=== PATIENT | male | born 1955 | race African-American/Black ===

== ENCOUNTER 2017-06-15 11:55 | Inpatient (IN) ==
[2017-06-15] MEDS ORDERED: SODIUM CHLORIDE 0.9% 2,900 ML IV STA (12:30)
[2017-06-15] MEDS ORDERED: LEVOFLOXACIN INJ 750 MG in PREMIX 1 EACH IV STA (12:39)
[2017-06-15] MEDS ORDERED: LEVOFLOXACIN INJ 150 ML IV ONE (12:56)
[2017-06-15] MEDS ORDERED: ONDANSETRON 4 MG/2 ML VIAL IV PRN (13:08)
[2017-06-15] MEDS ORDERED: THIAMINE 200 MG/2 ML VIAL IV STA (13:19)
[2017-06-15] MEDS ORDERED: GLUCAGON 1 MG VIAL IM PRN (13:19)
[2017-06-15 13:20] LABS: Basophils % 0.3 % (0.0-0.8); Hematocrit 31.1 VOL% (42.0-52.0); Hemoglobin 11.2 GM/DL (14.0-18.0); Immature Granulocytes % 0.3 %; Immature Granulocytes Absolute 0.01 #; Lymphocytes # 0.6 10*3/uL (1.4-4.0); Lymphocytes % 16.1 % (21.2-54.2); Mean Corpuscular Hemoglobin 33 PG (27-34); Mean Corpuscular Volume 92.3 FL (87-102); Monocytes # 0.3 10*3/uL (0.11-0.8); Monocytes % 7.7 % (1.7-12.7); NRBC # 0.23 10*3/uL; Neutrophils % 75.6 % (38.7-73.9); Red Blood Count 3.37 MC/CUMM (3.8-5.5); Red Cell Distribution Width 16.5 % (9.3-17.3); White Blood Count 3.9 T/CUMM (4-12)
[2017-06-15 13:22] LABS: Platelet Count 108 T/CUMM (130-400)
[2017-06-15] MEDS ORDERED: SODIUM CHLORIDE 0.9% 3,900 ML IV ONE (13:22)
[2017-06-15] MEDS ORDERED: THIAMINE 200 MG/2 ML VIAL ONE (13:24)
[2017-06-15 13:28] LABS: INR 1.2; PT Patient Result 12.5 SECS; Partial Thromboplastin Time 33.2 SECS (0-40)
[2017-06-15] MEDS ORDERED: SODIUM CHLORIDE 0.9% 1,000 ML IV SCH (13:30)
[2017-06-15 13:47] LABS: Lactic Acid 3.8 MMOL/L (0.4-2.0)
[2017-06-15 13:52] LABS: Alanine Aminotransferase 78 U/L (16-61); Albumin 2.4 G/DL (3.4-5.0); Alkaline Phosphatase 358 U/L (45-117); Aspartate Amino Transferase 127 U/L (0-37); Blood Urea Nitrogen 11 MG/DL (7-18); CKMB % 10.8 %; Calcium 8.1 MG/DL (8.5-10.1); Free T4 (Free Thyroxine) 0.99 NG/DL (0.76-1.46); Osmolality,Calculated 269.7 MOS/KG (273-304); Potassium 3.6 MMOL/L (3.5-5.1); Sodium 138 MMOL/L (136-145); Thyroid Stimulating Hormone 0.547 uIU/ml (0.358-3.74); Total Protein 5.9 G/DL (6.4-8.3); Troponin I Only 0.015 NG/ML (0.00-0.045)
[2017-06-15 14:02] LABS: Glucose 33 MG/DL (74-106)
[2017-06-15] MEDS ORDERED: DEXTROSE 50% 25 GM/50 ML VIAL IV STA (14:02)
[2017-06-15] MEDS ORDERED: DEXTROSE 50% 25 GM/50 ML SYRINGE IV ONE (14:04)
[2017-06-15] MEDS ORDERED: DEXTROSE 5% NACL 0.9% 1,000 ML IV SCH (15:00)
[2017-06-15] MEDS ORDERED: LORazepam 2 MG/1 ML VIAL IV PRN (15:51)
[2017-06-15] MEDS ORDERED: SODIUM CHLORIDE 0.9% 1,000 ML IV ONE ×2 (15:53→18:28)
[2017-06-15] MEDS: DEXTROSE 50% 25 GM/50 ML VIAL IV PRN ×5 (17:18→22:25)
[2017-06-15] MEDS: DEXTROSE 10% 1,000 ML IV SCH (20:28)
[2017-06-15] MEDS: SODIUM CHLORIDE 0.9% 1,000 ML IV SCH (20:29)
[2017-06-15] MEDS ORDERED: ENOXAPARIN 40 MG/0.4 ML SYRINGE SUBCUT SCH (21:00)
[2017-06-15] MEDS: CEFEPIME 1,000 MG in SYRINGE 1 EACH IV SCH (22:51)
[2017-06-16 05:03] LABS: Hemoglobin 10.9 GM/DL (14.0-18.0); Immature Granulocytes % 0.2 %; Immature Granulocytes Absolute 0.01 #; Lymphocytes # 0.7 10*3/uL (1.4-4.0); Lymphocytes % 12.8 % (21.2-54.2); Mean Corpuscular HGB Conc 36.3 GM/DL (32-36); Mean Corpuscular Hemoglobin 34 PG (27-34); Mean Corpuscular Volume 93.2 FL (87-102); Mean Platelet Volume 11.2 FL (9.6-12.0); Monocytes # 0.4 10*3/uL (0.11-0.8); Monocytes % 6.8 % (1.7-12.7); NRBC # 0.17 10*3/uL; Neutrophils # 4.6 10*3/uL (1.4-7.4); Neutrophils % 80.2 % (38.7-73.9); Red Blood Count 3.22 MC/CUMM (3.8-5.5); Red Cell Distribution Width 16.5 % (9.3-17.3); White Blood Count 5.7 T/CUMM (4-12)
[2017-06-16 05:10] LABS: Platelet Count 78 T/CUMM (130-400)
[2017-06-16 05:43] LABS: Albumin 2.2 G/DL (3.4-5.0); Bilirubin,Total 1.3 MG/DL (0.2-1.0); Calcium 7.7 MG/DL (8.5-10.1); Magnesium 1.4 MG/DL (1.8-2.4); Osmolality,Calculated 273.7 MOS/KG (273-304); Potassium 4.4 MMOL/L (3.5-5.1); Total Protein 5.6 G/DL (6.4-8.3)
[2017-06-16 05:54] LABS: Lymphocytes 10 % (20-55); Nucleated Red Blood Cells 3 (0-5); Segmented Neutrophils 80 % (50-85); Total Cells Counted 100
[2017-06-16 05:55] LABS: Anisocytosis 1+; Hypochromasia 1+; Macrocytosis Slight
[2017-06-16 05:56] LABS: Platelet Estimate Decreased; Target Cells Slight
[2017-06-16] MEDS ORDERED: MAGNESIUM SULF RIDER 4 GM in PREMIX 1 EACH IV ONE (09:17)
[2017-06-16] MEDS: DEXTROSE 10% 1,000 ML IV SCH ×3 (09:49→23:15)
[2017-06-16] MEDS: THIAMINE 200 MG/2 ML VIAL IV SCH (09:55)
[2017-06-16] MEDS: CEFEPIME 1,000 MG in SYRINGE 1 EACH IV SCH ×2 (10:00→21:43)
[2017-06-16] MEDS ORDERED: ZINC OXIDE PASTE 113 GM TUBE TOP PRN (11:25)
[2017-06-16] MEDS: SODIUM CHLORIDE 0.9% 1,000 ML IV SCH ×5 (11:31→18:38)
[2017-06-16] MEDS: LEVOFLOXACIN INJ 750 MG in PREMIX 1 EACH IV SCH (14:41)
[2017-06-16] MEDS: NOREPINEPHRINE 8 MG in SODIUM CHLORIDE 0.9% 242 ML IV SCH ×2 (19:40→19:41)
[2017-06-16 20:21] LABS: Apearance,Urine CLEAR (Clear); Bacteria,Urine Occasional /HPF (Few); Bilirubin,Urine Negative (Negative); Blood, Urine Large mg/dL (Negative); Glucose,Urine (UA) Negative (Negative); Ketones,Urine Negative (Negative); Mucus,Urine Occasional /LPF (Occasional); Nitrite,Urine Negative (Negative); Protein,Urine Negative; RBC,Urine 16 /HPF (0-4); Urine Color Yellow (Yellow); Urine Specific Gravity 1.003 (1.001-1.035); Urine Urobilinogen < 2.0 EU/DL (0.2-1.0); WBC,Urine 22 /HPF (0-6)
[2017-06-17] MEDS: SODIUM CHLORIDE 0.9% 1,000 ML IV SCH (02:38)
[2017-06-17 05:09] LABS: Basophils % 0.2 % (0.0-0.8); Eosinophils % 0.4 % (0.00-10.9); Hematocrit 29.7 VOL% (42.0-52.0); Hemoglobin 10.2 GM/DL (14.0-18.0); Immature Granulocytes % 0.2 %; Immature Granulocytes Absolute 0.01 #; Lymphocytes # 1.1 10*3/uL (1.4-4.0); Lymphocytes % 24.3 % (21.2-54.2); Mean Corpuscular HGB Conc 34.3 GM/DL (32-36); Mean Corpuscular Hemoglobin 33 PG (27-34); Mean Corpuscular Volume 97.1 FL (87-102); Mean Platelet Volume 11.3 FL (9.6-12.0); Monocytes # 0.3 10*3/uL (0.11-0.8); Monocytes % 5.5 % (1.7-12.7); NRBC # 0.11 10*3/uL; Neutrophils # 3.2 10*3/uL (1.4-7.4); Neutrophils % 69.4 % (38.7-73.9); Platelet Count 53 T/CUMM (130-400); Red Blood Count 3.06 MC/CUMM (3.8-5.5); Red Cell Distribution Width 16.8 % (9.3-17.3); White Blood Count 4.6 T/CUMM (4-12)
[2017-06-17 05:33] LABS: Calcium 7.7 MG/DL (8.5-10.1); Osmolality,Calculated 273.5 MOS/KG (273-304)
[2017-06-17 05:39] LABS: Band Neutrophils 2 % (0-10); Eosinophils 1 % (0-10); Giant Platelets Few; Hypochromasia 1+; Lymphocytes 20 % (20-55); Nucleated Red Blood Cells 4 (0-5); Platelet Estimate Decreased; Segmented Neutrophils 74 % (50-85); Total Cells Counted 100
[2017-06-17 05:40] LABS: Macrocytosis Slight
[2017-06-17] MEDS: DEXTROSE 10% 1,000 ML IV SCH (06:17)
[2017-06-17] MEDS: THIAMINE 200 MG/2 ML VIAL IV SCH (09:40)
[2017-06-17] MEDS: CEFEPIME 1,000 MG in SYRINGE 1 EACH IV SCH (09:46)
[2017-06-17] MEDS: SKIN HEALING OINT (AQUAPHOR) 50 GM TUBE TOP PRN (09:50)
[2017-06-17] MEDS: LEVOFLOXACIN INJ 750 MG in PREMIX 1 EACH IV SCH (12:32)
[2017-06-18] MEDS: CEFEPIME 1,000 MG in SYRINGE 1 EACH IV SCH ×3 (00:19→21:45)
[2017-06-18] MEDS ORDERED: ALBUTEROL/IPRATROPIUM 3 ML NEB RESP TX PRN (01:07)
[2017-06-18 02:18] LABS: CKMB % 9.4 %; Troponin I Only < 0.015 NG/ML (0.00-0.045)
[2017-06-18 03:09] LABS: ABG Base Excess 1.2 MMOL/L (-2.5-2.5); ABG HCO3 25.8 MMOL/L (20-26); ABG Oxygen Saturation 92.4 % (95-100); ABG PCO2 40.9 MM HG (35-48); ABG PH 7.418 (7.35-7.45); ABG PO2 62.6 MM HG (80-95); ABG TCO2 27.1 MMOL/L (23-27)
[2017-06-18] MEDS: DEXTROSE 50% 25 GM/50 ML VIAL IV PRN ×5 (04:19→20:26)
[2017-06-18] MEDS: THIAMINE 200 MG/2 ML VIAL IV SCH (08:45)
[2017-06-18 08:53] LABS: Eosinophils % 0.9 % (0.00-10.9); Hematocrit 29.8 VOL% (42.0-52.0); Hemoglobin 10.2 GM/DL (14.0-18.0); Immature Granulocytes % 0.6 %; Immature Granulocytes Absolute 0.02 #; Lymphocytes # 1.1 10*3/uL (1.4-4.0); Lymphocytes % 32.4 % (21.2-54.2); Mean Corpuscular HGB Conc 34.2 GM/DL (32-36); Mean Corpuscular Hemoglobin 33 PG (27-34); Mean Corpuscular Volume 96.8 FL (87-102); Monocytes # 0.3 10*3/uL (0.11-0.8); Monocytes % 9.7 % (1.7-12.7); NRBC # 0.28 10*3/uL; Neutrophils # 1.9 10*3/uL (1.4-7.4); Neutrophils % 56.4 % (38.7-73.9); Red Blood Count 3.08 MC/CUMM (3.8-5.5); Red Cell Distribution Width 16.7 % (9.3-17.3); White Blood Count 3.4 T/CUMM (4-12)
[2017-06-18 08:55] LABS: Platelet Count 47 T/CUMM (130-400)
[2017-06-18 09:22] LABS: Osmolality,Calculated 273.5 MOS/KG (273-304); Potassium 3.8 MMOL/L (3.5-5.1)
[2017-06-18 09:35] LABS: Eosinophils 2 % (0-10); Hypochromasia 1+; Lymphocytes 37 % (20-55); Macrocytosis 1+; Nucleated Red Blood Cells 12 (0-5); Segmented Neutrophils 55 % (50-85); Total Cells Counted 100
[2017-06-18 09:36] LABS: Platelet Estimate Decreased
[2017-06-18] MEDS: LEVOFLOXACIN INJ 750 MG in PREMIX 1 EACH IV SCH (11:26)
[2017-06-18] MEDS: SKIN HEALING OINT (AQUAPHOR) 50 GM TUBE TOP PRN (11:27)
[2017-06-18] MEDS ORDERED: SODIUM CHLORIDE 0.9% 1,000 ML IV SCH (14:00)
[2017-06-18] MEDS ORDERED: SODIUM CHLORIDE 0.9% 250 ML IV ONE (21:08)
[2017-06-18] MEDS: DEXTROSE 5% NACL 0.45% 1,000 ML IV SCH (21:31)
[2017-06-19] MEDS: DEXTROSE 5% NACL 0.45% 1,000 ML IV SCH ×3 (06:11→17:14)
[2017-06-19 07:38] LABS: Eosinophils % 1.2 % (0.00-10.9); Hematocrit 30.1 VOL% (42.0-52.0); Hemoglobin 10.3 GM/DL (14.0-18.0); Immature Granulocytes % 1.2 %; Immature Granulocytes Absolute 0.04 #; Lymphocytes # 1.3 10*3/uL (1.4-4.0); Lymphocytes % 36.9 % (21.2-54.2); Mean Corpuscular HGB Conc 34.2 GM/DL (32-36); Mean Corpuscular Hemoglobin 33 PG (27-34); Mean Corpuscular Volume 96.8 FL (87-102); Mean Platelet Volume 12.3 FL (9.6-12.0); Monocytes # 0.4 10*3/uL (0.11-0.8); Monocytes % 11.3 % (1.7-12.7); NRBC # 0.22 10*3/uL; Neutrophils # 1.7 10*3/uL (1.4-7.4); Neutrophils % 49.4 % (38.7-73.9); Red Blood Count 3.11 MC/CUMM (3.8-5.5); Red Cell Distribution Width 16.9 % (9.3-17.3); White Blood Count 3.4 T/CUMM (4-12)
[2017-06-19 07:39] LABS: Platelet Count 40 T/CUMM (130-400)
[2017-06-19 08:02] LABS: Band Neutrophils 2 % (0-10); Calcium 8.5 MG/DL (8.5-10.1); Lymphocytes 35 % (20-55); Nucleated Red Blood Cells 9 (0-5); Osmolality,Calculated 272.7 MOS/KG (273-304); Potassium 3.7 MMOL/L (3.5-5.1); Segmented Neutrophils 54 % (50-85); Total Cells Counted 100
[2017-06-19 08:03] LABS: Hypochromasia 1+; Macrocytosis 1+; Platelet Estimate Decreased
[2017-06-19] MEDS: THIAMINE 200 MG/2 ML VIAL IV SCH (09:35)
[2017-06-19] MEDS: CEFEPIME 1,000 MG in SYRINGE 1 EACH IV SCH ×2 (09:40→22:04)
[2017-06-19] MEDS: LEVOFLOXACIN INJ 750 MG in PREMIX 1 EACH IV SCH (12:00)
[2017-06-19] MEDS ORDERED: amLODIPine 5 MG TABLET PO ONE (17:07)
[2017-06-20] MEDS: CEFEPIME 1,000 MG in SYRINGE 1 EACH IV SCH (09:57)
[2017-06-20] MEDS: THIAMINE 200 MG/2 ML VIAL IV SCH (10:04)
[2017-06-20] MEDS: amLODIPine 5 MG TABLET PO SCH (10:04)
[2017-06-20] MEDS: LEVOFLOXACIN INJ 750 MG in PREMIX 1 EACH IV SCH (10:08)
[2017-06-20] MEDS: DEXTROSE 5% NACL 0.45% 1,000 ML IV SCH ×2 (11:05→21:50)
[2017-06-20 13:52] LABS: Eosinophils % 0.7 % (0.00-10.9); Hematocrit 29.1 VOL% (42.0-52.0); Hemoglobin 9.9 GM/DL (14.0-18.0); Immature Granulocytes % 0.9 %; Immature Granulocytes Absolute 0.04 #; Lymphocytes # 1.6 10*3/uL (1.4-4.0); Lymphocytes % 36.6 % (21.2-54.2); Mean Corpuscular Hemoglobin 33 PG (27-34); Mean Platelet Volume 12.6 FL (9.6-12.0); Monocytes # 0.6 10*3/uL (0.11-0.8); Monocytes % 14.3 % (1.7-12.7); NRBC # 0.18 10*3/uL; Neutrophils # 2.1 10*3/uL (1.4-7.4); Neutrophils % 47.5 % (38.7-73.9); White Blood Count 4.4 T/CUMM (4-12)
[2017-06-20 13:55] LABS: Platelet Count 41 T/CUMM (130-400)
[2017-06-20 14:28] LABS: Albumin 2.2 G/DL (3.4-5.0); Bilirubin,Direct 0.45 MG/DL (0.0-0.20); Bilirubin,Indirect 0.9 MG/DL (0.0-1.0); Bilirubin,Total 1.3 MG/DL (0.2-1.0); Total Protein 5.9 G/DL (6.4-8.3)
[2017-06-20 15:38] LABS: Anisocytosis 1+; Platelet Estimate Decreased
[2017-06-20 15:39] LABS: Poikilocytosis Slight; Tear Drop Cells Few
[2017-06-21] MEDS: LEVOFLOXACIN INJ 750 MG in PREMIX 1 EACH IV SCH (09:55)
[2017-06-21] MEDS: THIAMINE 200 MG/2 ML VIAL IV SCH (09:56)
[2017-06-21] MEDS: amLODIPine 5 MG TABLET PO SCH (09:56)
[2017-06-22] MEDS: LEVOFLOXACIN INJ 750 MG in PREMIX 1 EACH IV SCH (11:03)
[2017-06-22] MEDS: amLODIPine 5 MG TABLET PO SCH (11:03)
[2017-06-22] MEDS: THIAMINE 200 MG/2 ML VIAL IV SCH (11:04)
[2017-06-22 16:49] VITALS: BP 128/93
== END 2017-06-22 17:19 | disposition home or self-care (01) | DRG 815 ==
LOC: EDUNIT# → EDBD → N.ED 11:55 → N.EDINP 12:50 → SUATTDRO 12:50 → N.EDINP 14:15 → N.CC 14:27 → N.5E 06-17 16:02 → N.CVR 06-18 02:18 → N.ICU 06-19 06:00 → N.2E 06-19 15:58
PROVIDERS: ADMIT Hospitalist; ATTEND Internal Medicine